=== PATIENT | female | born 1970 | race Hispanic/Latino ===

== ENCOUNTER 2024-02-19 19:02 | Emergency (ER) | payer BC ==
[~2024-02-19] VITALS: Ht 162.6 cm; Wt 82.0 kg
[2024-02-19] VITALS (12 sets, daily range): BP systolic 105–148; BP diastolic 63–86
[2024-02-19] MEDS ORDERED: SODIUM CHLORIDE 0.9% 1,000 ML IV STA (19:19)
[2024-02-19] MEDS ORDERED: FAMOTIDINE 10MG/ML 2ML SDV IV ONE (19:25)
[2024-02-19] MEDS ORDERED: ASPIRIN 81 MG/TAB PO ONE (19:25)
[2024-02-19] MEDS ORDERED: Pantoprazole Sodium 40 MG VIAL (Protonix) IV ONE (19:25)
[2024-02-19 20:13] LABS: URINE BILIRUBIN - DIPSTICK Negative (NEGATIVE); URINE BLOOD DIPSTICK Negative (NEGATIVE); URINE GLUCOSE - DIPSTICK Negative (NEGATIVE); URINE KETONE Negative (NEGATIVE); URINE NITRITE - DIPSTICK Negative (Negative); URINE PROTEIN - DIPSTICK Negative (NEG-TRACE); URINE SPECIFIC GRAVITY <=1.005; URINE UROBILINOGEN - DIPSTICK 0.2 E.U./dL (0.2)
[2024-02-19 20:13] LABS: BASO% 0.7 % (0-3); EOS% 1.2 % (0-8); HEMATOCRIT 38.1 % (37.0-47.0); HEMOGLOBIN 12.4 g/dl (12.0-16.0); IMMATURE GRANULOCYTES 0.1 % (0.0-5.0); LYMPH% 34.1 % (15-41); MEAN CELL VOLUME 87.4 fL CALC (80.0-100.0); MEAN CORPUSCULAR HGB 28.4 pG CALC (26.0-32.0); MEAN CORPUSCULAR HGB CONC 32.5 g/dL CAL (32.0-36.0); MONO% 8.7 % (2-13); NEUT# 4.96 thou/uL (2.00-7.15); NEUT% 55.2 % (42-76); RED BLOOD COUNT 4.36 mill/uL (4.20-5.60); RED CELL DISTRI WIDTH 13.9 % (11.5-15.5)
[2024-02-19 20:14] LABS: URINE COLOR Straw; URINE LEUK ESTERASE Small (NEGATIVE)
[2024-02-19 20:27] LABS: URINE RBC 0-2 RBC/hpf (0-5)
[2024-02-19 20:28] LABS: URINE BACTERIA RARE hpf; URINE SQUAMOUS EPITHELIAL CELL FEW EPI/hpf (0-FEW)
[2024-02-19 20:47] LABS: ALBUMIN 4.7 g/dL (3.2-5.0); ALKALINE PHOSPHATASE 93 u/l (38-126); ANION GAP 11 (6-22 (CALC)); BILIRUBIN, TOTAL 0.3 mg/dL (0.02-1.3); BUN 19 mg/dL (7-17); BUN/CREATININE RATIO 15 (12-20 (CALC)); CARBON DIOXIDE 28 mmol/l (22-30); CHLORIDE 105 mmol/l (95-108); CREATININE 1.2 mg/dL (0.5-1.0); ESTIMATED GFR 54 ML/MIN (>=90 (CALC)); LIPASE 322 u/l (23-300); POTASSIUM 3.9 mmol/l (3.5-5.1); SGOT/AST 29 u/l (14-36); SODIUM 140 mmol/l (137-146)
[2024-02-19] MEDS ORDERED: TRAMADOL HYDROC50 M1 PO (23:13)
[2024-02-19] MEDS ORDERED: PROTONIX40 M2 PO (23:13)
[2024-02-19] MEDS ORDERED: DICYCLOMINE HYD10 MG PO (23:16)
[2024-02-20 00:01] VITALS: BP 116/64
[2024-02-20 00:15] VITALS: BP 123/70
[2024-02-20 00:21] VITALS: BP 123/70
== END 2024-02-20 00:21 | disposition home or self-care (01) | DRG 439 ==
LOC: ED 19:02
PROVIDERS: Nurse Practitioner
DX: K85.90 Acute pancreatitis without necrosis or infection, unspecified (principal); K29.70 Gastritis, unspecified, without bleeding; K29.80 Duodenitis without bleeding; N39.0 Urinary tract infection, site not specified; I10 Essential (primary) hypertension; E11.9 Type 2 diabetes mellitus without complications; E78.5 Hyperlipidemia, unspecified; K21.9 Gastro-esophageal reflux disease without esophagitis
CPT/HCPCS: J2470; Q9967